=== PATIENT | female | born 1980 | race Caucasian/White ===

== ENCOUNTER → 2019-10-03 10:00 | Outpatient (CLI) | payer MEDICAID, SELFPAY ==
[2019-10-07 15:14] LABS: Hematocrit 45.2 % (37-47); Hemoglobin 15.3 g/dL (12.0-15.0); Mean Corp Hgb Conc 33.8 g/dL (32-36); Mean Corpuscular Volume 91.5 fL (81-99); Mean Platelet Vol. 10.8 fl (6.2-12.0); Platelet Count 366 K/mm3 (150-450); RBC Distribution Width CV 13.1 % (11.6-14.6); RBC Distribution Width SD 43.8 fl (35.1-43.9); Red Blood Count 4.94 M/mm3 (4.2-5.4); White Blood Count 6.9 K/mm3 (4.4-11.0)
--- NOTE | 2019-10-09 14:10 | PCM.HPOB.BLA ---
- Problem List (1) Menorrhagia Status: Acute (2) Fibroid uterus Status: Acute History and Physical Date of Admission: 10/10/19 DATE OF SERVICE: October 01, 2019 ? PROBLEM:?Menorrhagia with irregular cycle, uterine fibroids, uterine polyp ? DIAGNOSIS:?Menorrhagia with irregular cycles, uterine fibroids, uterine polyp ? PAST SURGICAL HISTORY:? PAST SURGICAL HISTORY PAST SURGICAL HISTORY Procedure Laterality Date ? SECTION HX ? 2009 ? OFFICE LEEP ? 01/2007 ? TONSILLECTOMY HX ? 2006 ? PAST MEDICAL HISTORY:? PAST MEDICAL HISTORY PAST MEDICAL HISTORY Diagnosis Date ? Benign intracranial hypertension 2005 ? pseudotumor cerebri - has shunt ? Esophageal reflux 02/01/2005 ? resolved ? Intracranial vascular stenosis 04/04/2014 ? Obesity, unspecified 02/01/2005 ? Rosacea 02/01/2005 ? Special screening examination for human papillomavirus (HPV) 10/06/2009 ? 2 years now of negative Neg PAP & HPV, now on yearly schedule 2009. ? SUBJECTIVE:? ? The patient reports irregular cycles and menorrhagia. She strongly desires a hysterectomy. She declines all other medical options. She says she does not have a PCP that she sees. She also reports that she never followed up with her neurosurgeon, and she believes she last saw her neurosurgeon over 3 years ago.? ? SOCIAL HISTORY:? SOCIAL HISTORY Social History ? Tobacco Use ? Smoking status: Current Every Day Smoker ? ? Packs/day: 1.00 ? ? Years: 11.00 ? ? Pack years: 11.00 ? ? Types: Cigarettes ? Smokeless tobacco: Never Used Substance Use Topics ? Alcohol use: Yes ? ? Frequency: Monthly or less ? ? Drinks per session: 1 or 2 ? ? Binge frequency: Never ? Drug use: No ? Current Outpatient Medications on File Prior to Visit Medication Sig ? clotrimazole-betamethasone (LOTRISONE) cream Apply 1 application to affected area twice daily. ? triamcinolone acetonide (KENALOG) 0.1 % cream apply to affected areas 2x daily for 2 weeks, then 1x daily Monday - Monday. Do not apply to genitals or face. ? albuterol HFA (VENTOLIN HFA) 90 mcg/actuation inhaler Inhale 2 Puffs as instructed every 4 hours as needed. ? albuterol (PROVENTIL) 2.5 mg /3 mL (0.083 %) nebulizer solution Use 3 mL via nebulizer every 6 hours as needed. 1 vial contains 3 ml. No current facility-administered medications on file prior to visit.? ALLERGIES ALLERGIES No Known Allergies ? ? OBJECTIVE: ? VITALS:? BP 124/76 ? Ht 5' 3.5 (1.613 m) ? Wt 232 lb (105.2 kg) ? LMP 08/23/2019 ? BMI 40.45 kg/m? ? ? HEENT: ?Normocephalic, atraumatic, Mucus membranes moist without lesions. ? NECK: ???Soft and Supple. ?No adenopathy , thyromegaly or bruits. ? SKIN: No lesions. ? CHEST: Clear to auscultation. ?No wheezes or rales. ?Good air exchange. ? HEART: Regular rate and rhythm ?No S3 or S4. ?No gallops or rubs. ? BACK: Nontender with no CVA tenderness. ? ABDOMEN: Soft, non-tender, non-distended, no masses, no hepatosplenomegaly. ? LOWER EXTREMITIES: There was no pitting edema, no palpable cords and no skin changes.? ? Pelvic US: RESULT: Imaging limited by body habitus. Uterus size: 11.5 x 8.4 x 9.7 cm ?-Orientation: Anteverted ?-Myometrium: Heterogeneous echotexture with shadowing. ?Posterior fundal subserosal hypoechoic density likely a fibroid measuring 4.9 x 2.6 x 4.4 cm. ?Anterior RIGHT hypoechoic density consistent with a fibroid 2.7 x 1.7 x 2.6 cm. ?Left-sided subserosal heterogeneous density consistent with a fibroid, 4.2 x 3.8 x 3.5 cm. ?-Endometrial echo complex: 1.2 cm ?-Cervix: normal Right ovary is not clearly identified Left ovary: 4.0 x 4.6 x 4.1 cm ?Normal sonographic appearance. ??Simple cyst/follicle 3.9 x 3.3 x 3.5 cm. Pelvis free fluid: Trace ? EMB:?proliferative endometrium and benign endometrial polyp Hgb 14.4 TSH WNL ? ? ASSESSMENT:?Menorrhagia with irregular cycles, uterine fibroid, uterine polyp ? PLAN:? ? Discussed with patient that unable to proceed with surgery at this time given that she has not followed up with her neurosurgeon in the past few years, and she is not established with a PCP. Also discussed that she may need surgery at a tertiary care center given her medical history, and pending recommendations from neurosurgeon and PCP. Also discussed that I recommend a hysteroscopy, polypectomy, Mirena IUD placement. Discussed that the polyp could be the cause of menorrhagia with an irregular cycle. Strongly recommend trying medical management first with a Mirena IUD after possible polypectomy. Also discussed that I recommend her having her surgery with MIGS due to several subserosal fibroids. Discussed that because of the size and location of the fibroids, will most likely need to have a LUCIEN. Discussed risks and recovery with a LUCIEN. Patient declines a MIGS referral. Patient states she only wants her surgery here and is okay proceeding with a LUCIEN. She understands that she will need to wait to have the surgery until she sees her neurosurgeon and establishes with a PCP.?The rationale for the proposed surgery was discussed in addition to risks, benefits, and alternatives. ?General pre- and post-operative care was reviewed. ?Questions were answered. ?After discussion, the patient indicated a desire to proceed with the planned surgery. Patient had clearance by neurology, PCP, and had anesthesia consult given her history. Will plan to proceed with TLH, BS, cysto and possible LUCIEN. ? Mallory Salinas,?DO
[2019-10-10 05:54] LABS: Internal QC Validated? YES +Cl - CLEAR BKGD; Pregnancy, Urine Negative Negative
[2019-10-10 05:56] LABS: Bedside Glucose 84 mg/dL (70-110)
[2019-10-10 05:58] VITALS: BP 131/79; PULSE 79; RESP 15; TEMP 36.3; O2SAT 97; BMI 39.6
[2019-10-10] MEDS: Phenazopyridine 95 MG Tablet 190 MG PO (06:06)
[2019-10-10] MEDS: Gabapentin 600 MG Tablet PO (06:06)
[2019-10-10] MEDS: Acetaminophen 500 MG Tablet 1000 MG PO (06:07)
[2019-10-10] MEDS: Lactated Ringers 1,000 ML 40 ML IV (06:07)
[2019-10-10 06:14] LABS: Magnesium 2.1 mg/dL (1.6-2.6)
[2019-10-10] MEDS: Enoxaparin 40 MG/0.4 ML Syringe SC (06:14)
[2019-10-10] MEDS: Scopolamine 1mg/72hr Patch 1 PATCH TRANSDERM. (06:16)
== END ==
PROVIDERS: Anesthesiology; PCP Internal Medicine; Referring Provider Obstetrics & Gynecology; Visit Provider Obstetrics & Gynecology
DX: Z01.812 Encounter for preprocedural laboratory examination (principal); N92.0 Excessive and frequent menstruation with regular cycle; N84.0 Polyp of corpus uteri; D25.2 Subserosal leiomyoma of uterus; Z90.710 Acquired absence of both cervix and uterus; L71.9 Rosacea, unspecified; F17.210 Nicotine dependence, cigarettes, uncomplicated
CPT/HCPCS: 36415; 81025; 82962; 83735; 85027; 86850; 86900; 86901; 87635; G2023; J7120; J2405; U0003